=== PATIENT | male | born 1945 | race Two or more races ===

== ENCOUNTER 2024-07-09 10:18 | Inpatient (IN) | payer OTHER, BC ==
[~2024-07-09] VITALS: Ht 180.3 cm; Wt 90.7 kg
[2024-07-09] MEDS ORDERED: TRAMADOL HCL 50 MG TABLET PO ONE (11:30)
[2024-07-09] MEDS ORDERED: PROPOFOL 10,000 MCG/ML VIAL IV PUSH ONE (13:45)
[2024-07-09] MEDS ORDERED: PROMETHAZINE HCL 25 MG/ML AMPUL IM ONE (15:00)
[2024-07-09] MEDS ORDERED: MEPERIDINE HCL/PF 50 MG/ML VIAL IM ONE (15:00)
[2024-07-09 16:01] LABS: HEMATOCRIT 38.7 % (39.0-48.0); HEMOGLOBIN 12.8 g/dL (13-16.00); MEAN CELL VOLUME 91.7 fL (80.0-100.00); MEAN CORPUSCULAR HEMOGLOBIN 30.3 pg (27.00-32.0); MEAN CORPUSCULAR HGB CONC 33.1 g/dl (32.0-36.0); PLATELET COUNT 180 K/uL (150-450); RED BLOOD COUNT 4.22 M/uL (4.00-6.00); RED CELL DISTRIBUTION WIDTH 13.9 % (11.5-14.5)
[2024-07-09 16:33] LABS: INR 0.97; PARTIAL THROMBOPLASTIN TIME 21.9 SECONDS (22.0-34.0); PROTHROMBIN TIME 10.6 SECONDS (9.0-11.5)
[2024-07-09 16:34] LABS: CALCIUM 8.8 mg/dL (8.5-10.1); CREATININE SERUM 1.06 mg/dL (0.70-1.30); GFR 67.57; POTASSIUM 4.14 mEq/L (3.5-5.1)
[2024-07-09 16:41] LABS: PH,URINE 5.5 (5.0-8.0); URINE APPEARANCE Cloudy; URINE BILIRRUBIN Negative (NEGATIVE); URINE BLOOD Negative; URINE COLOR Yellow; URINE GLUCOSE Negative (NEGATIVE); URINE KETONE Negative (NEGATIVE); URINE LEUKOCYTE Negative; URINE NITRATE Negative; URINE PROTEIN Trace (NEGATIVE)
[2024-07-09 16:45] LABS: URINE BACTERIA 15.9 uL (0.0-1933); URINE EPITHELIAL CELLS 16.1 uL (0.0-38.8); URINE RBC 2.2 uL (0.0-20.8); URINE WBC 6.6 uL (0.0-23.2)
[2024-07-09 18:19] LABS: URINE CAST 1.03 uL (0.0-1.40)
[2024-07-09] MEDS ORDERED: 0.9 % SODIUM CHLORIDE 1,000 ML IV SCH (19:30)
[2024-07-09] MEDS ORDERED: MORPHINE SULFATE 4 MG/ML VIAL IV PRN (19:30)
[2024-07-09] MEDS ORDERED: DEXTROSE 50 % IN WATER 0.5 G/ML DISP.SYRIN IV PRN (20:00)
[2024-07-09] MEDS ORDERED: INSULIN LISPRO 1,000 UNIT/10 ML UNITS SUBCUTANEO PRN (20:00)
[2024-07-09] MEDS ORDERED: FAMOTIDINE/PF 20 MG/2 ML VIAL ONE (20:39)
[2024-07-09] MEDS ORDERED: FAMOTIDINE/PF 20 MG in 0.9 % SODIUM CHLORIDE 8 ML IV PUSH SCH (21:00)
[2024-07-09] MEDS ORDERED: LOSARTAN POTASSIUM 100 MG TABLET PO SCH (21:01)
[2024-07-10] MEDS ORDERED: MORPHINE SULFATE 4 MG/ML VIAL IV STA (02:05)
[2024-07-10 04:01] VITALS: BP 189/86; O2SAT 98
[2024-07-10] MEDS ORDERED: ENALAPRILAT DIHYDRATE 1.25 MG/ML VIAL IV PRN (04:30)
[2024-07-10] MEDS ORDERED: 0.9 % SODIUM CHLORIDE 1,000 ML IV SCH (06:30)
[2024-07-10] MEDS ORDERED: MEPERIDINE HCL/PF 50 MG/ML VIAL IM PRN (06:30)
[2024-07-10] MEDS ORDERED: PROMETHAZINE HCL 50 MG/ML AMPUL IM PRN (06:30)
[2024-07-10] MEDS ORDERED: MORPHINE SULFATE 4 MG/ML VIAL IV PRN (06:30)
[2024-07-10] MEDS ORDERED: CEFAZOLIN SODIUM 1,000 MG VIAL IV ONE (06:30)
[2024-07-10 07:00] VITALS: BP 157/75; O2SAT 98
[2024-07-10] MEDS ORDERED: METOPROLOL TARTRATE 25 MG TABLET PO SCH (09:00)
[2024-07-10 16:00] VITALS: BP 158/83; O2SAT 96
[2024-07-10] MEDS ORDERED: ONDANSETRON HCL 2 MG/ML VIAL IV PRN (20:30)
[2024-07-10] MEDS ORDERED: ONDANSETRON 4 MG TAB.RAPDIS PO PRN (20:30)
[2024-07-10] MEDS ORDERED: SODIUM CHLORIDE 0.45 % 1,000 ML IV SCH (20:30)
[2024-07-10] MEDS ORDERED: ENALAPRILAT DIHYDRATE 1.25 MG/ML VIAL IV ONE (20:58)
[2024-07-10] MEDS ORDERED: ACETAMINOPHEN 325 MG TABLET PO SCH (21:00)
[2024-07-10] MEDS ORDERED: LOSARTAN POTASSIUM 100 MG TABLET PO STA (21:28)
[2024-07-10] MEDS ORDERED: hydrALAZINE HCL 20 MG VIAL IV PRN (21:30)
[2024-07-11] VITALS: BP 143/63; O2SAT 96
[2024-07-11 06:47] LABS: HEMATOCRIT 35.6 % (39.0-48.0); HEMOGLOBIN 12.4 g/dL (13-16.00); MEAN CELL VOLUME 89.8 fL (80.0-100.00); MEAN CORPUSCULAR HEMOGLOBIN 31.4 pg (27.00-32.0); MEAN CORPUSCULAR HGB CONC 34.9 g/dl (32.0-36.0); PLATELET COUNT 179 K/uL (150-450); RED BLOOD COUNT 3.96 M/uL (4.00-6.00); RED CELL DISTRIBUTION WIDTH 14.1 % (11.5-14.5)
[2024-07-11 08:00] VITALS: BP 122/58; O2SAT 96
[2024-07-11 19:29] VITALS: BP 134/64; O2SAT 97
[2024-07-12 00:30] VITALS: BP 158/75; O2SAT 100
[2024-07-12 08:11] VITALS: BP 150/71; O2SAT 98
[2024-07-12] MEDS ORDERED: ELIQUIS2.5 MG PO (12:22)
== END 2024-07-12 14:02 | disposition home or self-care (01) | DRG 561 ==
LOC: ER 10:18 → SURH 19:16
PROVIDERS: General Practice; Orthopaedic Surgery; ADMIT Internal Medicine; ATTEND Internal Medicine
PROC: 0SWBXJZ Revision of Synthetic Substitute in Left Hip Joint, External Approach (ICD-10-PCS; principal; 2024-07-10 18:00)
DX: T84.021A Dislocation of internal left hip prosthesis, initial encounter (principal); Y65.8 Other specified misadventures during surgical and medical care